=== PATIENT | male | born 1960 | race African-American/Black ===

== ENCOUNTER 2022-01-10 17:01 | Emergency (ER) | payer OTHER, MEDICAID ==
[~2022-01-10] VITALS: Ht 177.8 cm; Wt 114.0 kg
[2022-01-10] MEDS ORDERED: LEVETIRACETAM 1000MG PREMIX 100 ML IV ONE (18:45)
[2022-01-10] MEDS ORDERED: DIPHENHYDRAMINE 50MG/ML VIAL IV STA (18:51)
[2022-01-10] MEDS ORDERED: HALOPERIDOL LACTATE 5MG/ML VIAL IM STA (18:51)
[2022-01-10] MEDS ORDERED: LORAZEPAM 2MG/ML CPJ IV STA (18:51)
[2022-01-10 18:54] LABS: BASOPHILS % 0.3 % (0.0-2.0); EOSINOPHILS % 0.2 % (0.0-5.0); HEMATOCRIT. 45.5 % (42.0-52.0); HEMOGLOBIN. 14.5 g/dL (14.0-18.0); LYMPHOCYTES % 15.8 % (20.0-50.0); MEAN CORPUSCULAR HEMOGLOBIN 23.7 pg (28.0-32.0); MEAN CORPUSCULAR VOLUME 74.6 fL (80.0-94.0); MEAN PLATELET VOLUME 8.5 fl (7.4-10.4); MONOCYTES % 11.7 % (2.0-8.0); PLATELET 206 x1000/uL (130-400); RED CELL DISTRIBUTION WIDTH 15.6 % (11.6-14.6)
[2022-01-10 19:01] LABS: CHLORIDE 100 mEq/L (98-107)
[2022-01-10 19:17] LABS: ETHANOL BLOOD < 10 mg/dL
[2022-01-10] MEDS ORDERED: HALOPERIDOL LACTATE 5MG/ML VIAL IM ONE (20:15)
[2022-01-10] MEDS ORDERED: OLANZAPINE 10 MG/VIAL IM ONE (21:45)
[2022-01-10] MEDS ORDERED: SODIUM CHLORIDE 0.9% 1,000 ML IV ONE (22:45)
[2022-01-10] MEDS ORDERED: MIDAZOLAM HCL 2 MG/2 ML VIAL IV NR (23:00)
[2022-01-10] MEDS ORDERED: ZIPRASIDONE MESYLATE 20MG/VIAL IM ONE (23:45)
[2022-01-11] MEDS ORDERED: HYDROCODONE/ACETAMINOPHEN 10/325MG TABLET PO ONE (01:00)
[2022-01-11] MEDS ORDERED: KETOROLAC 15MG/ML VIAL IV ONE (01:00)
[2022-01-11] MEDS ORDERED: MORPHINE SULFATE 4 MG/ML CPJ (NOT FOR IM USE) IV NR (01:45)
[2022-01-11 02:42] LABS: CLARITY URINE CLEAR (CLEAR); COLOR URINE YELLOW (YELLOW); KETONES URINE NEGATIVE (NEGATIVE); LEUKOCYTE ESTERASE URINE NEGATIVE (NEGATIVE); NITRITE URINE NEGATIVE (NEGATIVE); OCCULT BLOOD URINE NEGATIVE (NEGATIVE); PH URINE 6.5 (4.5-8.0); PROTEIN URINE TRACE (NEGATIVE); UROBILINOGEN URINE 0.2 E.U./dL (0.2-1.0)
[2022-01-11 03:03] LABS: *AMPHETAMINES SCREEN URINE NEGATIVE (NEGATIVE); *BARBITURATES SCREEN URINE NEGATIVE (NEGATIVE); *BENZODIAZEPINES SCREEN URINE PRESUMTIVE POSITIVE (NEGATIVE); *COCAINE SCREEN URINE NEGATIVE (NEGATIVE); CANNABINOID URINE SCREEN NEGATIVE (NEGATIVE); METHADONE URINE SCREEN NEGATIVE (NEGATIVE); OPIATES URINE SCREEN NEGATIVE (NEGATIVE); PHENCYCLIDINE URINE SCREEN NEGATIVE (NEGATIVE)
[2022-01-11 06:00] VITALS: BP 151/78
== END 2022-01-11 06:26 ==
LOC: ER 17:07
DX: R56.9 Unspecified convulsions (principal); R45.1 Restlessness and agitation; R62.50 Unspecified lack of expected normal physiological development in childhood; F84.0 Autistic disorder; E11.9 Type 2 diabetes mellitus without complications; M47.9 Spondylosis, unspecified
CPT/HCPCS: 36415; 70450; 80053; 80305; 80320; 81003; 82962; 85025; 93005; 96361; 96365; 96372; 96375; 99291; J1200; J1630; J1885; J1953; J2060; J2250; J3486; J3490; J7030; G0480

== ENCOUNTER 2022-10-05 10:34 | Emergency (ER) | payer OTHER ==
[~2022-10-05] VITALS: Ht 182.9 cm; Wt 100.0 kg
[2022-10-05] MEDS ORDERED: ONDANSETRON HCL 4MG/2ML INJ IV STA (10:45)
[2022-10-05] MEDS ORDERED: SODIUM CHLORIDE 0.9% 1,000 ML IV ONE (10:45)
[2022-10-05] MEDS ORDERED: metformin (10:58)
[2022-10-05 13:03] LABS: MEAN CORPUSCULAR HEMOGLOBIN 24.7 pg (28.0-32.0); MEAN CORPUSCULAR VOLUME 75.8 fL (80.0-94.0); MEAN PLATELET VOLUME 7.7 fl (7.4-10.4); PLATELET 135 x1000/uL (130-400); RED BLOOD CELL COUNT 5.28 mill/uL (4.7-6.1); RED CELL DISTRIBUTION WIDTH 14.6 % (11.6-14.6)
[2022-10-05 13:36] LABS: CHLORIDE 95 mEq/L (98-107)
[2022-10-05 13:54] LABS: PLATELET ESTIMATE NORMAL
[2022-10-05] MEDS ORDERED: HALOPERIDOL LACTATE 5MG/ML VIAL IM ONE (15:45)
[2022-10-05] MEDS ORDERED: ONDA4TAB50 MT (17:13)
[2022-10-05 17:23] VITALS: BP 139/78
== END 2022-10-05 17:26 | disposition home or self-care (01) ==
LOC: ER 10:54 → CANBEDREQ 10-06 08:26
DX: R10.9 Unspecified abdominal pain (principal); E11.9 Type 2 diabetes mellitus without complications; I10 Essential (primary) hypertension; Z98.890 Other specified postprocedural states
CPT/HCPCS: 36415; 71045; 74176; 80053; 83605; 84484; 85025; 87040; 93005; 96360; 96361; 96372; 99285; J1630; J7030

== ENCOUNTER 2022-12-11 07:45 | Emergency (ER) | payer OTHER ==
[~2022-12-11] VITALS: Ht 180.3 cm; Wt 116.0 kg
[~2022-12-11 07:45] MED LIST: ONDA4TAB50 MT; metformin
[2022-12-11] MEDS ORDERED: LEVETIRACETAM 1000MG PREMIX 100 ML IV SCH (08:00)
[2022-12-11] MEDS ORDERED: LEVETIRACETAM 500MG PREMIX 100 ML IV ONE (08:00)
[2022-12-11 08:33] LABS: BASOPHILS % 0.2 % (0.0-2.0); EOSINOPHILS % 0.5 % (0.0-5.0); HEMATOCRIT. 40.7 % (42.0-52.0); HEMOGLOBIN. 13.7 g/dL (14.0-18.0); LYMPHOCYTES % 21.1 % (20.0-50.0); MEAN CORPUSCULAR HEMOGLOBIN 25.4 pg (28.0-32.0); MEAN CORPUSCULAR VOLUME 75.9 fL (80.0-94.0); MEAN PLATELET VOLUME 7.1 fl (7.4-10.4); MONOCYTES % 12.3 % (2.0-8.0); NEUTROPHILS % 65.9 % (40.0-76.0); PLATELET 190 x1000/uL (130-400); RED BLOOD CELL COUNT 5.37 mill/uL (4.7-6.1); RED CELL DISTRIBUTION WIDTH 15.6 % (11.6-14.6)
[2022-12-11 08:40] LABS: CHLORIDE 91 mEq/L (98-107)
[2022-12-11 08:46] LABS: ETHANOL BLOOD < 10 mg/dL
[2022-12-11 10:30] VITALS: BP 142/77
== END 2022-12-11 11:01 | disposition home or self-care (01) ==
LOC: ER 07:45
DX: R56.9 Unspecified convulsions (principal)
CPT/HCPCS: 36415; 70450; 80053; 80320; 85025; 96365; 99285; J1953; G0480

== ENCOUNTER 2023-01-26 15:17 | Emergency (ER) | payer OTHER ==
[~2023-01-26] VITALS: Ht 177.8 cm; Wt 114.0 kg
[2023-01-26 16:23] LABS: HEMATOCRIT. 38.6 % (42.0-52.0); MEAN CORPUSCULAR HEMOGLOBIN 25.5 pg (28.0-32.0); MEAN CORPUSCULAR VOLUME 75.9 fL (80.0-94.0); MEAN PLATELET VOLUME 8.5 fl (7.4-10.4); PLATELET 179 x1000/uL (130-400); RED BLOOD CELL COUNT 5.09 mill/uL (4.7-6.1)
[2023-01-26 16:31] LABS: CHLORIDE 92 mEq/L (98-107)
[2023-01-26 16:38] LABS: ETHANOL BLOOD < 10 mg/dL
[2023-01-26 17:04] LABS: CLARITY URINE CLEAR (CLEAR); COLOR URINE YELLOW (YELLOW); KETONES URINE TRACE (NEGATIVE); LEUKOCYTE ESTERASE URINE NEGATIVE (NEGATIVE); NITRITE URINE NEGATIVE (NEGATIVE); OCCULT BLOOD URINE TRACE (NEGATIVE); PH URINE 6.5 (4.5-8.0); PROTEIN URINE 3+ (NEGATIVE); SPECIFIC GRAVITY URINE 1.012 (1.005-1.030); UROBILINOGEN URINE 0.2 E.U./dL (0.2-1.0)
[2023-01-26 17:17] LABS: *AMPHETAMINES SCREEN URINE NEGATIVE (NEGATIVE); *BARBITURATES SCREEN URINE NEGATIVE (NEGATIVE); *BENZODIAZEPINES SCREEN URINE NEGATIVE (NEGATIVE); *COCAINE SCREEN URINE NEGATIVE (NEGATIVE); CANNABINOID URINE SCREEN NEGATIVE (NEGATIVE); METHADONE URINE SCREEN NEGATIVE (NEGATIVE); OPIATES URINE SCREEN NEGATIVE (NEGATIVE); PHENCYCLIDINE URINE SCREEN NEGATIVE (NEGATIVE)
[2023-01-26 17:45] VITALS: BP 134/66
[2023-01-26] MEDS ORDERED: SODIUM CHLORIDE 0.9% 1,000 ML IV ONE (17:45)
[2023-01-26 19:18] LABS: PLATELET ESTIMATE NORMAL
== END 2023-01-26 20:02 ==
LOC: ER 15:17
DX: G40.909 Epilepsy, unspecified, not intractable, without status epilepticus (principal); J45.909 Unspecified asthma, uncomplicated; I11.0 Hypertensive heart disease with heart failure; I50.9 Heart failure, unspecified; E78.00 Pure hypercholesterolemia, unspecified; E11.9 Type 2 diabetes mellitus without complications; Z79.84 Long term (current) use of oral hypoglycemic drugs
CPT/HCPCS: 36415; 71045; 80053; 80305; 80320; 81003; 83735; 85025; 93005; 96360; 99285; G0480